=== PATIENT | male | born 1950 | race Caucasian/White ===

== ENCOUNTER 2017-05-27 03:53 | Emergency (ER) | payer MEDICARE ==
[~2017-05-27] VITALS: Ht 172.7 cm; Wt 65.8 kg
--- NOTE | 2017-05-27 04:03 | NUR ---
66 Y/O MALE PLACED IN BED 2 C/O LACERATION TO LEFT FOREARM SECONDARY TO A TRIP AND FALL.
--- NOTE | 2017-05-27 04:06 | NUR ---
PT HAS A HX OF TN AND IS ON BLOOD THINNERS.
[2017-05-27] MEDS ORDERED: LIDOCAINE 1%-EPI 1:100,000 20 ML VIAL ONE (04:31)
--- NOTE | 2017-05-27 04:33 | NUR ---
LACERATION IRRIGATED AND CLEANED. WAITING FOR DO TO CLOSE THE LACERATION
--- NOTE | 2017-05-27 05:02 | NUR ---
LACERATION SUTURED BY DO. EMT DRESSED THE WOUND. PT READY TO BE DISCHARGED HOME.
--- NOTE | 2017-05-27 05:09 | NUR ---
ACI GIVEN TO PT. PT DISCHARGED HOMETO FOLLOW UP WITH PMD.
[2017-05-27 05:13] VITALS: BP 138/82
== END 2017-05-27 05:15 | disposition home or self-care (01) ==
LOC: ER 03:55
DX: S51.812A Laceration without foreign body of left forearm, initial encounter (principal); E11.9 Type 2 diabetes mellitus without complications; F32.9 Major depressive disorder, single episode, unspecified; I10 Essential (primary) hypertension; I25.2 Old myocardial infarction; I25.10 Atherosclerotic heart disease of native coronary artery without angina pectoris; Z95.5 Presence of coronary angioplasty implant and graft; W01.0XXA Fall on same level from slipping, tripping and stumbling without subsequent striking against object, initial encounter; Y93.89 Activity, other specified; Y92.89 Other specified places as the place of occurrence of the external cause; Y99.8 Other external cause status
CPT/HCPCS: 12001; 99283; A4606; A6402; J3490; Z7610

== ENCOUNTER 2021-11-12 05:14 | Inpatient (IN) | payer MEDICARE ==
[~2021-11-12] VITALS: Ht 172.7 cm; Wt 53.5 kg
--- NOTE | 2021-11-12 05:21 | NUR ---
TO ER BED 4. [id number] FROM HOME C/O LEFT HIP PAIN S/P TRIP AND FALL . BREATHING IS EVEN AND NON LABORE. CONNECTED TO MONITOR
--- NOTE | 2021-11-12 06:08 | NUR ---
IV LINE ESTABLISHED, RAC20G. BLOOD COLLECTED AND SENT TO LAB
[2021-11-12 06:14] LABS: BASOPHILS % (AUTO) 0.4 % (0.0-2.0); EOSINOPHILS % (AUTO) 1.3 % (0.0-6.0); HEMATOCRIT 36 % (39-51); HEMOGLOBIN 12.3 g/dL (13.5-17.5); LYMPHOCYTES # (AUTO) 1.7 K/uL (0.8-4.8); LYMPHOCYTES % (AUTO) 15.2 % (20.0-44.0); MEAN CORPUSCULAR HGB CONC 34 g/dl (31.0-36.0); MEAN CORPUSCULAR VOLUME 94 fL (80-96); MONOCYTES % (AUTO) 8.7 % (2.0-12.0); NEUTROPHILS # (AUTO) 8.3 K/uL (1.8-8.9); NEUTROPHILS % (AUTO) 74.4 % (43.0-81.0); PLATELET COUNT (AUTO) 114 K/uL (150-450); RED BLOOD CELL COUNT(AUTO) 3.81 MIL/uL (4.5-6.0); WHITE BLOOD COUNT (AUTO) 11.2 K/uL (4.3-11.0)
--- NOTE | 2021-11-12 06:36 | NUR ---
COVID SWAB COLLECTED AND SENT TO LAB
[2021-11-12 06:47] LABS: CARBON DIOXIDE 27 mmol/L (21-32); CHLORIDE 101 mmol/L (98-107); CREATININE 1.7 mg/dL (0.6-1.3); GLUCOSE 185 mg/dL (74-106); POTASSIUM 4.6 mmol/L (3.5-5.1); SODIUM SERUM 135 mmol/L (136-145); UREA NITROGEN, BLOOD 23 mg/dL (7-18)
[2021-11-12 06:57] LABS: CREATINE KINASE, TOTAL 36 U/L (39-308)
[2021-11-12] MEDS ORDERED: ATOR40TA PO (08:21)
[2021-11-12] MEDS ORDERED: ERGO500093 PO (08:21)
[2021-11-12] MEDS ORDERED: LISI20TA30 PO (08:21)
[2021-11-12] MEDS ORDERED: MONT10TA22 PO (08:21)
[2021-11-12] MEDS ORDERED: GLIM1TAB18 PO (08:21)
[2021-11-12] MEDS ORDERED: VENL150C58 PO (08:21)
[2021-11-12] MEDS ORDERED: CARV25TA2 PO (08:21)
[2021-11-12] MEDS ORDERED: METF-440 PO (08:21)
[2021-11-12] MEDS ORDERED: ASPI-1169 PO (08:21)
[2021-11-12] MEDS ORDERED: GABA600T12 PO (08:21)
--- NOTE | 2021-11-12 11:13 | NUR ---
[facility] CALLED AUTO CLUTCH REBUILDER PAGED.
[2021-11-12] MEDS ORDERED: MORPHINE SULFATE INJ 2 MG/ML DISP.SYRIN IV PRN (11:30)
[2021-11-12] MEDS ORDERED: ACETAMINOPHEN 325 MG TABLET PO PRN (11:30)
[2021-11-12] MEDS ORDERED: ONDANSETRON HCL/PF 4 MG/2 ML VIAL IVP PRN (11:30)
[2021-11-12] MEDS ORDERED: hydrALAZINE HCL IV 20 MG VIAL IV PRN (11:30)
[2021-11-12] MEDS: ENOXAPARIN SODIUM 40 MG/0.4 ML DISP.SYRIN SQ SCH (12:00)
[2021-11-12] MEDS ORDERED: DEXTROSE 50%-WATER 50 ML DISP.SYRIN IV PRN (12:00)
--- NOTE | 2021-11-12 12:07 | NUR ---
HELD LOVENOX [address] LINK.
--- NOTE | 2021-11-12 12:11 | NUR ---
MRSA SWAB OBTAINED AND SENT TO LAB
[2021-11-12] MEDS: BLOOD SUGAR DIAGNOSTIC 1 EACH STRIP IN SCH ×3 (12:12→21:42)
[2021-11-12] MEDS: INSULIN REGULAR, HUMAN 100 UNIT/ML 3 ML VIAL SQ PRN ×3 (12:13→21:44)
--- NOTE | 2021-11-12 12:13 | NUR ---
BLOOD SUGAR 138. NO INSULIN COVERAGE GIVEN DUE TO PATIENT TO BE KEPT NPO UNTIL MRI RESULT IS KNOWN (PER DR LINK).
--- NOTE | 2021-11-12 12:48 | NUR ---
311-1. NURSE FOR REPORT IS EHSAN
--- NOTE | 2021-11-12 12:55 | NUR ---
x-ray tech at the bedside
--- NOTE | 2021-11-12 13:05 | NUR ---
REPORT GIVEN TO NURSE FRANKS FOR DARLINE
--- NOTE | 2021-11-12 13:15 | NUR ---
THE PATIENT IS TAKEN TO ROOM 311-1 IN STABLE CONDITION AND PER POLICY.
[2021-11-12 13:20] VITALS: BP 123/58
--- NOTE | 2021-11-12 13:20 | NUR ---
MS SPECIAL OFFICER [employer] NOTES RECEIVED PATIENT FROM ER ENDORSED BY KLEBER OWENS [facility]IA [facility]. PATIENT IS AWAKE AND A/O X4. ON ROOM AIR TOLERATING WELL. NO SOB NOTED. NOT IN DISTRESS. WITH NO COMPLAINTS OF PAIN OR DISCOMFORT AT THIS TIME. WITH IV ACCESS AT THE RIGHT AC G20 SALINE LOCKED, PATENT AND INTACT. SKIN ASSESSMENT DONE WITH INTACT SKIN. SAFETY MEASURES IN PLACED. CALL LIGHT WITHIN REACH. BED ON LOWEST LOCKED POSITION, SIDE RAILS UP X2. WILL CONTINUE TO MONITOR.
[2021-11-12 16:00] VITALS: BP 123/58
[2021-11-12] MEDS: DOCUSATE SODIUM 100 MG CAPSULE PO SCH ×2 (17:00→17:36)
[2021-11-12] MEDS: GABAPENTIN 300 MG CAPSULE PO SCH ×2 (17:00→17:37)
[2021-11-12] MEDS: VENLAFAXINE XR 150 MG CAP.SR.24H PO SCH ×2 (17:00→17:36)
[2021-11-12] MEDS: CARVEDILOL 12.5 MG TABLET PO SCH ×2 (17:00→17:39)
--- NOTE | 2021-11-12 17:45 | NUR ---
RN NOTE PATIENT HAS MEDICATIONS AT THE BEDSIDE AND REFUSING TO SUBMIT MEDS TO THE PHARMACY. REFUSED TO TAKE MEDS WE TOOK FROM THE [facility] AND PREFERS TO TAKE HIS OWN MEDICATIONS.
[2021-11-12] MEDS: METFORMIN 500 MG TABLET PO SCH (18:00)
--- NOTE | 2021-11-12 18:22 | NUR ---
MS RN CLOSING NOTES PATIENT IS AWAKE AND A/O X4. ON ROOM AIR TOLERATING WELL. NO SOB NOTED. NOT IN DISTRESS. WITH NO COMPLAINTS OF PAIN OR DISCOMFORT AT THIS TIME. WITH IV ACCESS AT THE RIGHT AC G20 SALINE LOCKED, PATENT AND INTACT. DUE MEDS GIVEN. SAFETY MEASURES IN PLACED. CALL LIGHT WITHIN REACH. BED ON LOWEST LOCKED POSITION, SIDE RAILS UP X2. WILL ENDORSE TO NEXT SHIFT FOR DARLINE.
--- NOTE | 2021-11-12 19:05 | NUR ---
RN opening notes Pt is sitting in bed comfortably watching TV accompanied by Pt's . Pt is alert and orientedX4. On room air. No SOB. No S/S of distress noted.IV site at RAC# 20 is clean, intact, flushes well and SL. safety precautions is maintained. Bed at low position, brakes locked, side rails upX2, hob elevated, bed alarm is on and call light is within reach. Will continue to monitor.
[2021-11-12 20:00] VITALS: BP 131/68
--- NOTE | 2021-11-12 20:22 | NUR ---
RN notes Pt is requesting a sleeping pill. Informed and notified Dr. Hernandez. ordered restoril 15 mg/po/hs/prn. Ordered carry out.
--- NOTE | 2021-11-12 21:44 | NUR ---
RN notes Pt's blood sugar HS is 176. Pt refuses coverage. Pt states " I don't want insulin. I've never taken insulin." Explained risks and benefits. Pt keep refusing.
[2021-11-12] MEDS: TEMAZEPAM 15 MG CAPSULE PO PRN (21:48)
--- NOTE | 2021-11-12 21:51 | NUR ---
Rn notes Pt is having insomnia and requesting a sleeping pill. administered restoril 15 mg/1 tab/po as ordered for sleeping. safety precautions is maintained. will continue to monitor.
--- NOTE | 2021-11-13 06:40 | NUR ---
RN closing notes Pt is resting in bed comfortably. Pt is alert and orientedX4. On room air. No SOB. No S/S of distress noted. VS is stable. IV site at RAC# 20 is clean, intact, flushes well and SL. Kept Pt clean, dry and comfortable. safety precautions is maintained. Bed at low position, brakes locked, side rails upX2, hob elevated, bed alarm is on and call light is within reach. Will endorse to am nurse for DARLINE.
[2021-11-13 06:53] LABS: BASOPHILS # (AUTO) 0.1 K/uL (0.0-0.2); BASOPHILS % (AUTO) 0.7 % (0.0-2.0); HEMATOCRIT 37 % (39-51); HEMOGLOBIN 12.9 g/dL (13.5-17.5); LYMPHOCYTES # (AUTO) 1.8 K/uL (0.8-4.8); LYMPHOCYTES % (AUTO) 20.7 % (20.0-44.0); MEAN CORPUSCULAR HGB CONC 35 g/dl (31.0-36.0); MEAN CORPUSCULAR VOLUME 93 fL (80-96); MONOCYTES # (AUTO) 0.8 K/uL (0.1-1.30); MONOCYTES % (AUTO) 9.5 % (2.0-12.0); NEUTROPHILS # (AUTO) 5.8 K/uL (1.8-8.9); NEUTROPHILS % (AUTO) 68.1 % (43.0-81.0); PLATELET COUNT (AUTO) 102 K/uL (150-450); RED BLOOD CELL COUNT(AUTO) 3.97 MIL/uL (4.5-6.0); WHITE BLOOD COUNT (AUTO) 8.5 K/uL (4.3-11.0)
[2021-11-13] MEDS: BLOOD SUGAR DIAGNOSTIC 1 EACH STRIP IN SCH ×4 (07:16→22:47)
[2021-11-13] MEDS: INSULIN REGULAR, HUMAN 100 UNIT/ML 3 ML VIAL SQ PRN (07:17)
--- NOTE | 2021-11-13 07:17 | NUR ---
RN notes Pt blood sugar in am is 159. Pt refused coverage. Explained risks and benefits. Pt keep refusing. Am nurse is aware and informed. Will continue to monitor.
[2021-11-13 07:24] LABS: ALBUMIN 3.3 g/dL (3.4-5.0); BILIRUBIN,TOTAL 0.7 mg/dL (0.2-1.0); CALCIUM, SERUM 8.9 mg/dL (8.5-10.1); CREATININE 1.1 mg/dL (0.6-1.3); PHOSPHORUS 3.1 mg/dL (2.5-4.9); POTASSIUM 4.6 mmol/L (3.5-5.1); TOTAL PROTEIN, SERUM 6.5 g/dL (6.4-8.2)
--- NOTE | 2021-11-13 07:34 | NUR ---
MS RN NOTES RECEIVED PATIENT IN BED AWAKE. PATIENT IS ALERT AND ORIENTED TIMES 4. NO PAIN NOTED. NO DISTRESS NOTED. NO SOB NOTED. ON ROOM AIR AND TOLERATING WELL. ABLE TO MAKE NEEDS KNOWN. IV ACCESS ON THE RAC # 20 INTACT. ALL SAFETY MEASURES IN PLACE. BED LOCKED IN THE LOWEST POSITION. CALL LIGHT AND TABLE IN EASY REACH. SIDE RAILS UP TIMES 2. FALL RISK. BED ALARM ON. WILL CONTINUE TO MONITOR CLOSELY.
[2021-11-13 08:00] VITALS: BP 113/61
[2021-11-13] MEDS: METFORMIN 500 MG TABLET PO SCH ×2 (08:00→18:18)
--- NOTE | 2021-11-13 08:11 | NUR ---
RN NOTES PATIENT REFUSED SCD FOR DVT PROPHYLAXIS. EXPLAINED THE BENEFITS AND USAGE AND NECESSITY OF THE MACHINE, BUT STILL REFUSING STRONGLY.
[2021-11-13] MEDS: ASPIRIN 81 MG TAB.CHEW PO SCH (09:00)
[2021-11-13] MEDS: POLYETHYLENE GLYCOL 3350 17 GM POWD.PACK PO SCH (09:00)
[2021-11-13] MEDS: LISINOPRIL (20MG) 20 MG TABLET PO SCH (09:00)
[2021-11-13] MEDS: VENLAFAXINE XR 150 MG CAP.SR.24H PO SCH ×2 (09:00→16:28)
[2021-11-13] MEDS: CARVEDILOL 12.5 MG TABLET PO SCH ×2 (09:00→16:31)
[2021-11-13] MEDS: DOCUSATE SODIUM 100 MG CAPSULE PO SCH ×2 (09:00→17:00)
[2021-11-13] MEDS: ATORVASTATIN 40 MG TABLET PO SCH (09:00)
[2021-11-13] MEDS: GABAPENTIN 300 MG CAPSULE PO SCH ×2 (09:00→16:30)
[2021-11-13] MEDS: MONTELUKAST SODIUM (10MG) 10 MG TABLET PO SCH (09:00)
--- NOTE | 2021-11-13 09:08 | NUR ---
RN NOTES PATIENT REFUSED ALL 0800 AND 0900 MEDICATIONS. EXPLAINED THE BENEFITS AND USE OF THE MEDICATIONS. PATIENT STILL REFUSING STRONGLY.
[2021-11-13] MEDS: ENOXAPARIN SODIUM 40 MG/0.4 ML DISP.SYRIN SQ SCH (12:00)
--- NOTE | 2021-11-13 12:10 | NUR ---
RN NOTES PATIENT REFUSED 1200 PM LOVENOX. EXPLAINED THE BENEFITS , USAGE AND NECESSITY OF THE MEDICATION. BUT PATIENT REFUSED STRONGLY.
[2021-11-13 16:00] VITALS: BP 143/76
--- NOTE | 2021-11-13 18:50 | NUR ---
MS RN CLOSING NOTES PATIENT IN BED AWAKE. PATIENT IS ALERT AND ORIENTED TIMES 4. NO PAIN NOTED. NO DISTRESS NOTED. NO SOB NOTED. ON ROOM AIR AND TOLERATING WELL. ABLE TO MAKE NEEDS KNOWN. IV ACCESS ON THE RAC # 20 INTACT. 1700 AND 1800 MEDS GIVEN ORDERED. EXCEPT DSS PATIENT REFUSED. ALL SAFETY MEASURES IN PLACE. BED LOCKED IN THE LOWEST POSITION. CALL LIGHT AND TABLE IN EASY REACH. SIDE RAILS UP TIMES 2. FALL RISK. BED ALARM ON. WILL ENDORSE FOR DARLINE.
[2021-11-13 20:00] VITALS: BP 99/59
--- NOTE | 2021-11-13 20:15 | NUR ---
MS/TELE/RN ON INITIAL SHIFT ROUND, PATIENT WAS IN BED AWAKE, ALERT, ORIENTED, NO C/O PAIN NO DISTRESS NOTED, FALL PRECAUTIONS PER PROTOCOL, CALL LIGHT IN REACH, NEEDS ATTENDED WILL MONITOR.
--- NOTE | 2021-11-13 22:44 | NUR ---
MS/TELE/RN ACCU CHECK BLOOD SUGAR 230, REFUSED INSULIN, EDUCATED ON IMPORTANCE OF INSULIN, VERBALISED UNDERSTANDING BUT STILL REFUSED INSULIN, STATING "IT WILL GO DOWN TOMORROW."
[2021-11-13] MEDS: TEMAZEPAM 15 MG CAPSULE PO PRN (22:47)
--- NOTE | 2021-11-13 23:55 | NUR ---
MS/TELE/RN PATIENT IS SLEEPING AT THIS TIME, NO SIGNS OF DISTRESS NOTED, CALL LIGHT IN REACH, WILL CONTINUE TO MONITOR.
--- NOTE | 2021-11-14 06:22 | NUR ---
MS/TELE/RN' PATIENT IS STILL SLEEPING AT THIS TIME, NO SIGNS OF DISTRESS NOTED, ALL NEEDS ATTENDED AT THIS TIME, WILL CONTINUE TO MONITOR.
--- NOTE | 2021-11-14 07:20 | NUR ---
MS RN OPENING NOTES PATIENT IN BED AWAKE. PATIENT IS A/O X4. NO PAIN EXPRESSED AT THIS TIME. ON RA WITH BREATHING EVEN AND UNLABORED. R AC G#20 INTACT AND PATENT. WENT OVER PLAN OF THE DAY WITH PATIENT AND PATIENT VERBALIZED UNDERSTANDING. SAFETY PRECAUTIONS IN PLACE. WILL CONTINUE TO MONITOR
[2021-11-14 08:00] VITALS: BP 103/73
[2021-11-14] MEDS: MONTELUKAST SODIUM (10MG) 10 MG TABLET PO SCH (08:32)
[2021-11-14] MEDS: ATORVASTATIN 40 MG TABLET PO SCH (08:32)
[2021-11-14] MEDS: BLOOD SUGAR DIAGNOSTIC 1 EACH STRIP IN SCH ×2 (08:32→12:00)
[2021-11-14] MEDS: DOCUSATE SODIUM 100 MG CAPSULE PO SCH (08:32)
[2021-11-14] MEDS: CARVEDILOL 12.5 MG TABLET PO SCH (08:32)
[2021-11-14 08:33] VITALS: BP 103/73
[2021-11-14] MEDS: LISINOPRIL (20MG) 20 MG TABLET PO SCH (08:33)
[2021-11-14] MEDS: GABAPENTIN 300 MG CAPSULE PO SCH (08:33)
[2021-11-14] MEDS: METFORMIN 500 MG TABLET PO SCH (08:33)
[2021-11-14] MEDS: ASPIRIN 81 MG TAB.CHEW PO SCH (08:33)
[2021-11-14] MEDS: POLYETHYLENE GLYCOL 3350 17 GM POWD.PACK PO SCH (08:33)
[2021-11-14] MEDS: VENLAFAXINE XR 150 MG CAP.SR.24H PO SCH (08:33)
--- NOTE | 2021-11-14 10:05 | NUR ---
WOUND CARE CONSULT; PT PRESENTS WITH SOME ABRASIONS TO LEFT ARM, PRESENT ON ADMISSION. RECOMMENDATIONS MADE FOR WOUND CARE AND SKIN PROTECTION. DISCUSSED WITH NURSING STAFF. PT REFUSED TO TURN FOR FULL SKIN ASSESSMENT. MD IN AGREEMENT WITH PLAN OF CARE.
[2021-11-14] MEDS ORDERED: HYDR-4303 PO (10:43)
[2021-11-14] MEDS: ENOXAPARIN SODIUM 40 MG/0.4 ML DISP.SYRIN SQ SCH (12:00)
--- NOTE | 2021-11-14 12:05 | NUR ---
RN NOTES PATIENT IS MEDICALLY CLEARED FOR DISCHARGE. CURRENTLY REFUSING TO HAVE ANYMORE MEDICATIONS. WILL CONTINUE TO MONITOR UNTIL DISCHARGED SAFELY
--- NOTE | 2021-11-14 12:45 | NUR ---
RN NOTES PATIENT MEDICALLY STABLE FOR DISCHARGE. VSS. DISCHARGE INSTRUCTIONS PROVIDED AND PATIENT VERBALIZED UNDERSTANDING. ALL BELONGINGS ACCOUNTED FOR AND DOCUMENTS SIGNED. SKIN CLEAR AND INTACT OTHER THAN LEFT ARM ABRASION NOTED AND PHOTOGRAPHED. IV ACCESS REMOVED AND ID BAND REMOVED. PATIENT LEFT HOSPITAL ACCOMPANIED BY GIRLFRIEND IN PRIVATE CAR.
[2021-12-12] MEDS ORDERED: ERGOCALCIFEROL (VITAMIN D 2) 50,000 UNIT CAPSULE PO SCH (09:00)
== END 2021-11-14 12:50 | disposition home health service (06) | DRG 535 ==
LOC: ER 05:16 → TRANSITION 11:44 → MED 12:52
PROVIDERS: ADMIT Internal Medicine; ATTEND Internal Medicine
DX: S72.115A Nondisplaced fracture of greater trochanter of left femur, initial encounter for closed fracture (principal); N17.0 Acute kidney failure with tubular necrosis; E87.1 Hypo-osmolality and hyponatremia; E11.42 Type 2 diabetes mellitus with diabetic polyneuropathy; W01.0XXA Fall on same level from slipping, tripping and stumbling without subsequent striking against object, initial encounter; E11.21 Type 2 diabetes mellitus with diabetic nephropathy; D63.8 Anemia in other chronic diseases classified elsewhere; E78.5 Hyperlipidemia, unspecified; E88.09 Other disorders of plasma-protein metabolism, not elsewhere classified; I10 Essential (primary) hypertension; I25.10 Atherosclerotic heart disease of native coronary artery without angina pectoris; Z66 Do not resuscitate; Z20.822 Contact with and (suspected) exposure to COVID-19; E87.70 Fluid overload, unspecified; I25.2 Old myocardial infarction; Y93.9 Activity, unspecified; Y92.009 Unspecified place in unspecified non-institutional (private) residence as the place of occurrence of the external cause; Z79.84 Long term (current) use of oral hypoglycemic drugs
CPT/HCPCS: 36415; 71100-TC; 73090-TC; 73502; 73700-TC; 73721-TC; 80048-TC; 80053-TC; 82550-TC; 82962-TC; 83605-TC; 83735-TC; 84100-TC; 85025-TC; 85610-TC; 87081-TC; 97116-TC; 97530-TC; A6253; C9803; G0378

== ENCOUNTER 2021-11-28 14:10 | Emergency (ER) | payer MEDICARE ==
[~2021-11-28] VITALS: Ht 167.6 cm; Wt 52.2 kg
[~2021-11-28 14:10] MED LIST: ASPI-1169 PO; ATOR40TA PO; CARV25TA2 PO; ERGO500093 PO; GABA600T12 PO; GLIM1TAB18 PO; HYDR-4303 PO; LISI20TA30 PO; METF-440 PO; MONT10TA22 PO; VENL150C58 PO
--- NOTE | 2021-11-28 14:22 | NUR ---
To ER bed 3, "Been having swelling on ankles last couple days spoke to my MD was told to have it checked", aaox3, ambulatory, breathing even and non labored, connected to monitor, awaiting md marcus
--- NOTE | 2021-11-28 16:20 | NUR ---
PER RADIOLOGY, PATIENT HAS POSITIVE DVT ON DISTAL RIGHT FEMORAL VEIN, DR DECKER AWARE
[2021-11-28 16:51] LABS: BASOPHILS # (AUTO) 0.1 K/uL (0.0-0.2); BASOPHILS % (AUTO) 1.2 % (0.0-2.0); EOSINOPHILS % (AUTO) 5.1 % (0.0-6.0); HEMATOCRIT 34 % (39-51); HEMOGLOBIN 11.8 g/dL (13.5-17.5); LYMPHOCYTES # (AUTO) 1.8 K/uL (0.8-4.8); LYMPHOCYTES % (AUTO) 28.4 % (20.0-44.0); MEAN CORPUSCULAR HGB CONC 35 g/dl (31.0-36.0); MEAN CORPUSCULAR VOLUME 93 fL (80-96); MONOCYTES # (AUTO) 0.4 K/uL (0.1-1.30); MONOCYTES % (AUTO) 6.9 % (2.0-12.0); NEUTROPHILS # (AUTO) 3.7 K/uL (1.8-8.9); NEUTROPHILS % (AUTO) 58.4 % (43.0-81.0); PLATELET COUNT (AUTO) 167 K/uL (150-450); RED BLOOD CELL COUNT(AUTO) 3.66 MIL/uL (4.5-6.0); WHITE BLOOD COUNT (AUTO) 6.4 K/uL (4.3-11.0)
[2021-11-28 17:05] LABS: CALCIUM, SERUM 9.1 mg/dL (8.5-10.1); CARBON DIOXIDE 31 mmol/L (21-32); CHLORIDE 106 mmol/L (98-107); GLUCOSE 80 mg/dL (74-106); POTASSIUM 4.5 mmol/L (3.5-5.1); SODIUM SERUM 139 mmol/L (136-145); UREA NITROGEN, BLOOD 21 mg/dL (7-18)
[2021-11-28 17:11] LABS: ALANINE AMINOTRANSFERASE 20 U/L (12-78); ALBUMIN 3.2 g/dL (3.4-5.0); ALKALINE PHOSPHATASE 93 U/L (46-116); ASPARTATE AMINOTRANSFERASE 16 U/L (15-37); BILIRUBIN,TOTAL 0.3 mg/dL (0.2-1.0); TOTAL PROTEIN, SERUM 6.2 g/dL (6.4-8.2)
[2021-11-28] MEDS ORDERED: RIVA10TA PO (17:37)
--- NOTE | 2021-11-28 17:40 | NUR ---
DR DECKER BEDSIDE TALKING TO THE PATIENT
--- NOTE | 2021-11-28 17:44 | NUR ---
Patient discharged to home in stable condition. Written and verbal after care instructions given. Patient verbalizes understanding of instruction.
[2021-11-28 17:45] VITALS: BP 134/80
== END 2021-11-28 17:46 | disposition home or self-care (01) ==
LOC: ER 16:19
DX: I82.403 Acute embolism and thrombosis of unspecified deep veins of lower extremity, bilateral (principal); I10 Essential (primary) hypertension; E11.9 Type 2 diabetes mellitus without complications; Z90.89 Acquired absence of other organs; Z60.2 Problems related to living alone; Z79.899 Other long term (current) drug therapy
CPT/HCPCS: 36415; 80053-TC; 85025-TC; 85730-TC; 93970-TC

== ENCOUNTER 2023-05-26 10:29 | Emergency (ER) | payer MEDICARE ==
[~2023-05-26] VITALS: Ht 172.7 cm; Wt 59.0 kg
[~2023-05-26 10:29] MED LIST changes: -HYDR-4303 PO; +RIVA10TA PO
[2023-05-26 10:41] VITALS: BP 153/90; TEMP 98.2; O2SAT 100
[2023-05-26] MEDS: BACI/NEOM/POLY B OINT PKT 1 UDPKT PACKET TP ONE (11:03)
[2023-05-26] MEDS ORDERED: BENZOIN COMPOUND TINCT 60 ML BOTTLE ONE (11:27)
== END 2023-05-26 12:01 | disposition home or self-care (01) ==
LOC: ER 10:41
DX: S61.211A Laceration without foreign body of left index finger without damage to nail, initial encounter (principal); S40.022A Contusion of left upper arm, initial encounter; S40.021A Contusion of right upper arm, initial encounter; S09.90XA Unspecified injury of head, initial encounter; I10 Essential (primary) hypertension; E78.5 Hyperlipidemia, unspecified; I25.2 Old myocardial infarction; E11.9 Type 2 diabetes mellitus without complications; Z90.89 Acquired absence of other organs; Z60.2 Problems related to living alone; Z79.84 Long term (current) use of oral hypoglycemic drugs; Z79.899 Other long term (current) drug therapy; W01.0XXA Fall on same level from slipping, tripping and stumbling without subsequent striking against object, initial encounter; Y93.89 Activity, other specified; Y92.89 Other specified places as the place of occurrence of the external cause; Y99.8 Other external cause status
CPT/HCPCS: 70450-TC

== ENCOUNTER 2024-01-05 20:11 | Inpatient (IN) | payer MEDICARE ==
[~2024-01-05] VITALS: Ht 172.7 cm; Wt 57.4 kg
[2024-01-05] MEDS: IV NS 0.9% 1,000 ML BAG IV ONE ×2 (20:41→21:40)
[2024-01-05] MEDS ORDERED: INSULIN REGULAR, HUMAN 100 UNIT/ML 10 ML VIAL ONE (20:43)
[2024-01-05 20:46] LABS: BASOPHILS % (AUTO) 0.3 % (0.0-2.0); EOSINOPHILS % (AUTO) 0.6 % (0.0-6.0); HEMATOCRIT 43 % (39-51); HEMOGLOBIN 14.2 g/dL (13.5-17.5); LYMPHOCYTES # (AUTO) 0.7 K/uL (0.8-4.8); LYMPHOCYTES % (AUTO) 17.7 % (20.0-44.0); MEAN CORPUSCULAR HEMOGLOBIN 33 PG (26.0-33.0); MEAN CORPUSCULAR HGB CONC 33 g/dl (31.0-36.0); MEAN CORPUSCULAR VOLUME 99 fL (80-96); MONOCYTES # (AUTO) 0.7 K/uL (0.1-1.30); MONOCYTES % (AUTO) 19.2 % (2.0-12.0); NEUTROPHILS # (AUTO) 2.4 K/uL (1.8-8.9); NEUTROPHILS % (AUTO) 62.2 % (43.0-81.0); PLATELET COUNT (AUTO) 134 K/uL (150-450); RED BLOOD CELL COUNT(AUTO) 4.32 MIL/uL (4.5-6.0); RED CELL DISTRIBUTION WIDTH 13.2 % (11.5-15.0); WHITE BLOOD COUNT (AUTO) 3.8 K/uL (4.3-11.0)
[2024-01-05 21:01] LABS: CALCIUM, SERUM 9.7 mg/dL (8.5-10.1); CARBON DIOXIDE 21 mmol/L (21-32); CHLORIDE 93 mmol/L (98-107); CREATININE 1.1 mg/dL (0.6-1.3); GLUCOSE 353 mg/dL (74-106); POTASSIUM 4.1 mmol/L (3.5-5.1); SODIUM SERUM 132 mmol/L (136-145); UREA NITROGEN, BLOOD 35 mg/dL (7-18)
[2024-01-05] MEDS: INSULIN REGULAR, HUMAN 100 UNIT/ML 10 ML VIAL IV ONE (21:05)
[2024-01-05] MEDS ORDERED: INSULIN REGULAR, HUMAN 100 UNIT/ML 10 ML VIAL IV ONE (22:30)
[2024-01-05] MEDS ORDERED: Z GUARD REMEDY 4 OZ OINT TP PRN (22:30)
[2024-01-05] MEDS ORDERED: ONDANSETRON HCL/PF 4 MG/2 ML VIAL IVP PRN (22:30)
[2024-01-05 22:46] VITALS: O2SAT 98
[2024-01-05] MEDS ORDERED: INSULIN REGULAR, HUMAN 100 UNIT/ML 10 ML VIAL SQ SCH (23:00)
[2024-01-06] MEDS: BLOOD SUGAR DIAGNOSTIC 1 EACH STRIP IN SCH ×2 (00:03→01:04)
[2024-01-06] MEDS ORDERED: INSULIN REGULAR, HUMAN 100 UNIT/ML 3 ML VIAL SQ PRN (00:30)
[2024-01-06] MEDS ORDERED: *INSULIN REGULAR(HUMULIN R)HUM 100 UNIT/ML VIAL SQ PRN (00:30)
[2024-01-06] MEDS ORDERED: DEXTROSE 50%-WATER 50 ML DISP.SYRIN IV PRN (00:30)
[2024-01-06] MEDS ORDERED: BLOOD SUGAR DIAGNOSTIC 1 EACH STRIP IN SCH (00:30)
[2024-01-06] MEDS ORDERED: INSULIN GLARGINE, 100 UNIT/ML CARTRIDGE SQ ONE (00:34)
[2024-01-06] MEDS: IV NS 0.9% 1,000 ML IV PRN (00:40)
[2024-01-06] MEDS: INSULIN GLARGINE, 100 UNIT/ML CARTRIDGE SQ SCH (00:42)
[2024-01-06] MEDS: *INSULIN REGULAR(HUMULIN R)HUM 100 UNIT/ML VIAL SQ SCH (01:00)
[2024-01-06] MEDS: MAG HYDROX/AL HYDROX/SIMETH 30 ML UDC PO PRN (01:26)
[2024-01-06 02:00] LABS: CALCIUM, SERUM 9.4 mg/dL (8.5-10.1); CARBON DIOXIDE 16 mmol/L (21-32); CHLORIDE 101 mmol/L (98-107); GLUCOSE 237 mg/dL (74-106); PHOSPHORUS 2.9 mg/dL (2.5-4.9); SODIUM SERUM 137 mmol/L (136-145); UREA NITROGEN, BLOOD 31 mg/dL (7-18)
[2024-01-06 05:00] VITALS: BP 117/84; TEMP 98.1; O2SAT 98
[2024-01-06 06:17] LABS: BASOPHILS % (AUTO) 0.1 % (0.0-2.0); EOSINOPHILS % (AUTO) 0.4 % (0.0-6.0); HEMATOCRIT 41 % (39-51); HEMOGLOBIN 13.8 g/dL (13.5-17.5); LYMPHOCYTES # (AUTO) 0.4 K/uL (0.8-4.8); LYMPHOCYTES % (AUTO) 17.6 % (20.0-44.0); MEAN CORPUSCULAR HEMOGLOBIN 33 PG (26.0-33.0); MEAN CORPUSCULAR HGB CONC 34 g/dl (31.0-36.0); MEAN CORPUSCULAR VOLUME 98 fL (80-96); MONOCYTES # (AUTO) 0.3 K/uL (0.1-1.30); MONOCYTES % (AUTO) 11.9 % (2.0-12.0); NEUTROPHILS # (AUTO) 1.7 K/uL (1.8-8.9); PLATELET COUNT (AUTO) 109 K/uL (150-450); RED BLOOD CELL COUNT(AUTO) 4.18 MIL/uL (4.5-6.0); RED CELL DISTRIBUTION WIDTH 12.9 % (11.5-15.0); WHITE BLOOD COUNT (AUTO) 2.4 K/uL (4.3-11.0)
[2024-01-06 06:24] LABS: ABG BASE EXCESS -5.2 mmol/L (-2.0-3.0); ABG OXYGEN SATURATION 95.4 % (94.0-98.0); ABG PCO2 26.7 mmHg (35.0-48.0); ABG PH 7.434 (7.350-7.450); ABG PO2 81.7 mmHg (83.0-108.0); ABG TOTAL HEMOGLOBIN 13.2 G/dL (13.5-17.5); COHb 0.3 % (0.5-1.5); MetHb 0.2 % (0.0-1.5); O2Hb 94.9 % (94.0-97.0)
[2024-01-06] MEDS ORDERED: INSULIN REGULAR, HUMAN 100 UNIT/ML 10 ML VIAL SQ SCH (07:30)
[2024-01-06 07:31] LABS: ALANINE AMINOTRANSFERASE 20 U/L (12-78); ALBUMIN 3.3 g/dL (3.4-5.0); ALKALINE PHOSPHATASE 50 U/L (46-116); ASPARTATE AMINOTRANSFERASE 20 U/L (15-37); BILIRUBIN,DIRECT 0.1 mg/dL (0.0-0.2); BILIRUBIN,TOTAL 0.5 mg/dL (0.2-1.0); CARBON DIOXIDE 22 mmol/L (21-32); CHLORIDE 102 mmol/L (98-107); CREATININE 0.9 mg/dL (0.6-1.3); GLUCOSE 164 mg/dL (74-106); MAGNESIUM 2.3 mg/dL (1.8-2.4); PHOSPHORUS 2.6 mg/dL (2.5-4.9); SODIUM SERUM 137 mmol/L (136-145); TOTAL PROTEIN, SERUM 6.5 g/dL (6.4-8.2); UREA NITROGEN, BLOOD 26 mg/dL (7-18)
[2024-01-06] MEDS: PANTOPRAZOLE 40 MG VIAL IV SCH (08:03)
[2024-01-06 08:21] VITALS: BP 123/68; TEMP 99; O2SAT 96
[2024-01-06 15:58] VITALS: BP 114/64; TEMP 97.9; O2SAT 96
== END 2024-01-06 18:10 | disposition home or self-care (01) | DRG 638 ==
LOC: ER 20:17 → TELE 22:56 → MED 01-06 11:28
PROVIDERS: ADMIT Nurse Practitioner Family; ATTEND Nurse Practitioner Family
DX: E11.10 Type 2 diabetes mellitus with ketoacidosis without coma (principal); Z68.1 Body mass index [BMI] 19.9 or less, adult; E78.5 Hyperlipidemia, unspecified; E86.0 Dehydration; I10 Essential (primary) hypertension; I25.10 Atherosclerotic heart disease of native coronary artery without angina pectoris; F41.9 Anxiety disorder, unspecified; I48.91 Unspecified atrial fibrillation; M89.8X9 Other specified disorders of bone, unspecified site; Z79.01 Long term (current) use of anticoagulants; Z79.84 Long term (current) use of oral hypoglycemic drugs; Z79.82 Long term (current) use of aspirin; R63.6 Underweight; R53.1 Weakness; Z95.5 Presence of coronary angioplasty implant and graft; Z20.822 Contact with and (suspected) exposure to COVID-19
CPT/HCPCS: 36415; 36600; 71045-TC; 80048-TC; 80076-TC; 82010-TC; 82803-TC; 82962-TC; 83735-TC; 84100-TC; 84443-TC; 84484-TC; 85025-TC; A4223; G0378; J1815; J2470; J7030

== ENCOUNTER 2024-01-08 23:47 | Inpatient (IN) | payer MEDICARE ==
[~2024-01-08] VITALS: Ht 165.1 cm; Wt 72.6 kg
[2024-01-09] VITALS (24 sets, daily range): BP systolic 31–175; BP diastolic 18–83; TEMP 97.4; O2SAT 64–87
[2024-01-09 00:13] LABS: BASOPHILS % (AUTO) 0.1 % (0.0-2.0); EOSINOPHILS % (AUTO) 0.2 % (0.0-6.0); HEMATOCRIT 41 % (39-51); HEMOGLOBIN 13.4 g/dL (13.5-17.5); LYMPHOCYTES # (AUTO) 0.5 K/uL (0.8-4.8); LYMPHOCYTES % (AUTO) 9.7 % (20.0-44.0); MEAN CORPUSCULAR HEMOGLOBIN 33 PG (26.0-33.0); MEAN CORPUSCULAR HGB CONC 33 g/dl (31.0-36.0); MEAN CORPUSCULAR VOLUME 100 fL (80-96); MONOCYTES # (AUTO) 0.8 K/uL (0.1-1.30); MONOCYTES % (AUTO) 14.4 % (2.0-12.0); NEUTROPHILS % (AUTO) 75.6 % (43.0-81.0); PLATELET COUNT (AUTO) 185 K/uL (150-450); RED BLOOD CELL COUNT(AUTO) 4.12 MIL/uL (4.5-6.0); RED CELL DISTRIBUTION WIDTH 13.3 % (11.5-15.0); WHITE BLOOD COUNT (AUTO) 5.3 K/uL (4.3-11.0)
[2024-01-09 00:34] LABS: ALANINE AMINOTRANSFERASE 21 U/L (12-78); ALBUMIN 3.1 g/dL (3.4-5.0); ALKALINE PHOSPHATASE 63 U/L (46-116); ASPARTATE AMINOTRANSFERASE 26 U/L (15-37); BILIRUBIN,TOTAL 0.8 mg/dL (0.2-1.0); CALCIUM, SERUM 8.9 mg/dL (8.5-10.1); CHLORIDE 98 mmol/L (98-107); CREATININE 1.3 mg/dL (0.6-1.3); GLUCOSE 297 mg/dL (74-106); NT-PRO BNP 4153 pg/mL (0-125); POTASSIUM 4.4 mmol/L (3.5-5.1); SODIUM SERUM 137 mmol/L (136-145); TOTAL PROTEIN, SERUM 6.3 g/dL (6.4-8.2); UREA NITROGEN, BLOOD 36 mg/dL (7-18)
[2024-01-09 00:36] LABS: CARBON DIOXIDE 8 mmol/L (21-32)
[2024-01-09 00:47] LABS: ABG BASE EXCESS -19.7 mmol/L (-2.0-3.0); ABG OXYGEN SATURATION 97.5 % (94.0-98.0); ABG PH 7.236 (7.350-7.450); ABG PO2 126.7 mmHg (83.0-108.0); COHb 0.3 % (0.5-1.5); MetHb 0.2 % (0.0-1.5); SITE, ABG LEFT BRACHIAL
[2024-01-09] MEDS: IV NS 0.9% 1,000 ML IV ONE ×2 (00:58→04:39)
[2024-01-09 01:05] LABS: ACETONE, SERUM LARGE (NEGATIVE)
[2024-01-09 01:07] LABS: LACTIC ACID 2.3 mmol/L (0.4-2.0)
[2024-01-09] MEDS ORDERED: PIPERACI/TAZO 3.375GM/D5W 50ML PB IV ONE (01:33)
[2024-01-09] MEDS ORDERED: INSULIN REGULAR, HUMAN 100 UNIT/ML 10 ML VIAL ONE (01:33)
[2024-01-09] MEDS: PIPERACILLIN /TAZOBACTAM 3.375 G in IV D5W 50 ML IV ONE (01:36)
[2024-01-09] MEDS: IV D5/0.45 NACL 1,000 ML IV ONE (02:04)
[2024-01-09] MEDS: INSULIN REGULAR, HUMAN 100 UNIT in IV NS 0.9% 99 ML IV PRN (02:05)
[2024-01-09 03:13] LABS: BILIRUBIN,DIRECT 0.2 mg/dL (0.0-0.2)
[2024-01-09 03:20] LABS: LACTIC ACID REFLEX 3.8 mmol/L (0.4-1.9)
[2024-01-09] MEDS ORDERED: LORAZEPAM INJ 2 MG/ML VIAL ONE (03:33)
[2024-01-09] MEDS: LORAZEPAM INJ 2 MG/ML VIAL IV ONE (03:36)
[2024-01-09 03:40] LABS: APPEARANCE,URINE CLEAR (CLEAR); BILIRUBIN,URINE 2+ (NEGATIVE); BLOOD, URINE NEGATIVE Ery/uL (NEGATIVE); COLOR,URINE YELLOW (YELLOW); KETONES,URINE 3+ mg/dL (NEGATIVE); LEUKOCYTE ESTERASE ,URINE NEGATIVE (NEGATIVE); NITRITE, URINE NEGATIVE (NEGATIVE); PROTEIN,URINE 1+ mg/dl (NEGATIVE); UGLUCOSE 3+ mg/dL (NEGATIVE); UROBILINOGEN,URINE 0.2 EU/dL (0.2)
[2024-01-09] MEDS ORDERED: diphenhydrAMINE HCL 50 MG/ML VIAL ONE (04:29)
[2024-01-09] MEDS ORDERED: Z GUARD REMEDY 4 OZ OINT TP PRN (04:30)
[2024-01-09] MEDS: diphenhydrAMINE HCL 50 MG/ML VIAL IV ONE (04:30)
[2024-01-09] MEDS ORDERED: ONDANSETRON HCL/PF 4 MG/2 ML VIAL IVP PRN (04:30)
[2024-01-09] MEDS: BLOOD SUGAR DIAGNOSTIC 1 EACH STRIP IN SCH (05:00)
[2024-01-09] MEDS ORDERED: INSULIN REGULAR, HUMAN 100 UNIT/ML 10 ML VIAL IV SCH (05:00)
[2024-01-09] MEDS: SUCCINYLCHOLINE CHLORIDE 20 MG/ML VIAL IV ONE (05:02)
[2024-01-09] MEDS: ETOMIDATE 2 MG/ML VIAL IV ONE (05:02)
[2024-01-09 05:22] LABS: ADD URINE CULTURE NO; BACTERIA,URINE None seen /HPF (None Seen); HYALINE CASTS, URINE Rare /LPF (None Seen); RBC,URINE NONE SEEN /HPF (0-2); SQUAMOUS EPITHELIAL CELL,UR 0-2 /HPF (None Seen); WBC,URINE NONE SEEN /HPF (0-3)
[2024-01-09] MEDS ORDERED: PROPOFOL 100 ML ONE (05:40)
[2024-01-09] MEDS ORDERED: NOREPINEPHRINE 8MG/250ML RTU 250 ML IV ONE (05:43)
[2024-01-09] MEDS: NOREPINEPHRINE 8 MG in IV D5W 242 ML IV PRN ×2 (05:52→07:05)
[2024-01-09] MEDS: PROPOFOL 100 ML IV PRN (06:00)
[2024-01-09] MEDS: SODIUM BICARBONATE SYR 50 MEQ/50 ML DISP.SYRIN IV ONE ×2 (06:12)
[2024-01-09] MEDS ORDERED: SODIUM BICARBONATE SYR 50 MEQ/50 ML DISP.SYRIN ONE ×2 (06:16→06:34)
[2024-01-09 06:26] LABS: PEEP,BG 5 cm H2O; SITE, ABG LEFT BRACHIAL; VT, ABG 400 mL
[2024-01-09 06:28] LABS: ABG OXYGEN SATURATION 96.7 % (94.0-98.0); ABG PCO2 18.6 mmHg (35.0-48.0); ABG PH 7.169 (7.350-7.450); ABG PO2 122.4 mmHg (83.0-108.0); ABG TOTAL HEMOGLOBIN 11.1 G/dL (13.5-17.5); COHb 0.3 % (0.5-1.5); O2Hb 96.4 % (94.0-97.0); SITE, ABG LEFT BRACHIAL
[2024-01-09] MEDS ORDERED: INSULIN REGULAR, HUMAN 100 UNIT in IV NS 0.9% 99 ML IV PRN (06:30)
[2024-01-09] MEDS: PANTOPRAZOLE 80 MG in IV NS 0.9% 100 ML IV ONE (06:35)
[2024-01-09] MEDS: Sodium Bicarbonate 50 MEQ in IV NS 0.9% 1,000 ML IV PRN (06:42)
[2024-01-09] MEDS ORDERED: PANTOPRAZOLE 40 MG VIAL ONE (06:43)
[2024-01-09] MEDS: PANTOPRAZOLE 80 MG in IV NS 0.9% 500 ML IV SCH (06:45)
[2024-01-09 07:08] LABS: EOSINOPHILS % (AUTO) 0.2 % (0.0-6.0); HEMATOCRIT 31 % (39-51); HEMOGLOBIN 10.5 g/dL (13.5-17.5); LYMPHOCYTES # (AUTO) 0.8 K/uL (0.8-4.8); LYMPHOCYTES % (AUTO) 9.6 % (20.0-44.0); MEAN CORPUSCULAR HEMOGLOBIN 33 PG (26.0-33.0); MEAN CORPUSCULAR HGB CONC 33 g/dl (31.0-36.0); MEAN CORPUSCULAR VOLUME 100 fL (80-96); MONOCYTES # (AUTO) 1.6 K/uL (0.1-1.30); MONOCYTES % (AUTO) 19.1 % (2.0-12.0); NEUTROPHILS # (AUTO) 5.8 K/uL (1.8-8.9); NEUTROPHILS % (AUTO) 71.1 % (43.0-81.0); PLATELET COUNT (AUTO) 145 K/uL (150-450); RED BLOOD CELL COUNT(AUTO) 3.14 MIL/uL (4.5-6.0); RED CELL DISTRIBUTION WIDTH 12.8 % (11.5-15.0); WHITE BLOOD COUNT (AUTO) 8.1 K/uL (4.3-11.0)
[2024-01-09 07:17] LABS: ALANINE AMINOTRANSFERASE 23 U/L (12-78); ALBUMIN 2.5 g/dL (3.4-5.0); ALKALINE PHOSPHATASE 59 U/L (46-116); ASPARTATE AMINOTRANSFERASE 24 U/L (15-37); BILIRUBIN,DIRECT 0.1 mg/dL (0.0-0.2); BILIRUBIN,TOTAL 0.6 mg/dL (0.2-1.0); CALCIUM, SERUM 7.4 mg/dL (8.5-10.1); CARBON DIOXIDE 13 mmol/L (21-32); CHLORIDE 106 mmol/L (98-107); CREATININE 1.5 mg/dL (0.6-1.3); GLUCOSE 315 mg/dL (74-106); MAGNESIUM 2.3 mg/dL (1.8-2.4); PHOSPHORUS 5.8 mg/dL (2.5-4.9); POTASSIUM 4.3 mmol/L (3.5-5.1); SODIUM SERUM 140 mmol/L (136-145); UREA NITROGEN, BLOOD 43 mg/dL (7-18)
[2024-01-09 07:32] LABS: INR 1.18 (0.91-1.10); PROTHROMBIN TIME 12.4 SECS (9.2-11.1)
[2024-01-09 07:43] LABS: NT-PRO BNP 5501 pg/mL (0-125)
[2024-01-09 07:50] LABS: BAND % (MANUAL) 2 % (0.0-5.0); LYMPHOCYTES % (MANUAL) 15 % (16-48); MONOCYTES % (MANUAL) 14 % (0-11.0); MYELOCYTES % 4 % (0-0); NEUTROPHILS % (MANUAL) 65 (42-76)
[2024-01-09 07:51] LABS: PLATELET ESTIMATE DECREASED
[2024-01-09] MEDS ORDERED: PANTOPRAZOLE 40 MG VIAL IV SCH (09:00)
[2024-01-09] MEDS ORDERED: PROPOFOL 100 ML IV PRN (09:00)
[2024-01-09] MEDS: IV NS 0.9% 1,000 ML IV PRN (09:59)
[2024-01-09] MEDS: NOREPINEPHRINE 32 MG in IV NS 0.9% 218 ML IV PRN (10:20)
[2024-01-09] MEDS: PIPERACILLIN /TAZOBACTAM 3.375 G in IV D5W 100 ML IV SCH (10:47)
[2024-01-09] MEDS ORDERED: SUCCINYLCHOLINE CHLORIDE 20 MG/ML VIAL IV ONE (10:50)
[2024-01-09 11:12] LABS: CALCIUM, SERUM 7.4 mg/dL (8.5-10.1); CARBON DIOXIDE 21 mmol/L (21-32); CHLORIDE 108 mmol/L (98-107); CREATININE 1.5 mg/dL (0.6-1.3); GLUCOSE 235 mg/dL (74-106); MAGNESIUM 2.1 mg/dL (1.8-2.4); PHOSPHORUS 4.1 mg/dL (2.5-4.9); POTASSIUM 3.5 mmol/L (3.5-5.1); SODIUM SERUM 144 mmol/L (136-145); UREA NITROGEN, BLOOD 46 mg/dL (7-18)
[2024-01-09] MEDS: PHENYLEPHRINE 100 MG in IV NS 0.9% 240 ML IV PRN (11:33)
[2024-01-09] MEDS ORDERED: Sodium Bicarbonate 150 MEQ in IV D5W 1,000 ML IV PRN (12:00)
[2024-01-09] MEDS: Sodium Bicarbonate 150 MEQ in IV D5W 1,000 ML IV SCH (12:25)
[2024-01-09] MEDS ORDERED: VASOPRESSIN INJ 40 UNIT in IV NS 0.9% 38 ML IV PRN (12:30)
[2024-01-09] MEDS ORDERED: CALCIUM CHLORIDE 1,000 MG/10 ML DISP.SYRIN IV ONE (13:05)
[2024-01-10 20:53] LABS: ABG BASE EXCESS -24.5 mmol/L (-2.0-3.0); ABG OXYGEN SATURATION 69.4 % (94.0-98.0); ABG PH 6.916 (7.350-7.450); ABG PO2 49.8 mmHg (83.0-108.0); ABG TOTAL HEMOGLOBIN 11.6 G/dL (13.5-17.5); COHb 0.3 % (0.5-1.5); MetHb 0.3 % (0.0-1.5)
== END 2024-01-09 15:00 | DRG 871 ==
LOC: ER 23:55 → ICU 01-09 06:06
PROVIDERS: ADMIT Nurse Practitioner Family; ATTEND Nurse Practitioner Family
PROC: 5A1935Z Respiratory Ventilation, Less than 24 Consecutive Hours (ICD-10-PCS; principal; 2024-01-09)
PROC: 0BH17EZ Insertion of Endotracheal Airway into Trachea, Via Natural or Artificial Opening (ICD-10-PCS; 2024-01-09)
PROC: 06HY33Z Insertion of Infusion Device into Lower Vein, Percutaneous Approach (ICD-10-PCS; 2024-01-09)
PROC: 5A12012 Performance of Cardiac Output, Single, Manual (ICD-10-PCS; 2024-01-09)
PROC: 0D9670Z Drainage of Stomach with Drainage Device, Via Natural or Artificial Opening (ICD-10-PCS; 2024-01-09)
DX: A41.9 Sepsis, unspecified organism (principal); E11.10 Type 2 diabetes mellitus with ketoacidosis without coma; J18.9 Pneumonia, unspecified organism; J69.0 Pneumonitis due to inhalation of food and vomit; R65.21 Severe sepsis with septic shock; N17.0 Acute kidney failure with tubular necrosis; J96.01 Acute respiratory failure with hypoxia; G93.41 Metabolic encephalopathy; K92.2 Gastrointestinal hemorrhage, unspecified; F41.9 Anxiety disorder, unspecified; E88.09 Other disorders of plasma-protein metabolism, not elsewhere classified; I46.9 Cardiac arrest, cause unspecified; Z91.148 Patient's other noncompliance with medication regimen for other reason; I48.91 Unspecified atrial fibrillation; Z79.82 Long term (current) use of aspirin; Z79.84 Long term (current) use of oral hypoglycemic drugs; Z79.899 Other long term (current) drug therapy; Z95.5 Presence of coronary angioplasty implant and graft; I25.10 Atherosclerotic heart disease of native coronary artery without angina pectoris; E86.0 Dehydration; I10 Essential (primary) hypertension; E78.5 Hyperlipidemia, unspecified; D50.9 Iron deficiency anemia, unspecified; Z79.01 Long term (current) use of anticoagulants
CPT/HCPCS: 31720; 36415; 36600; 70450-TC; 71045-TC; 80048-TC; 80053-TC; 80076-TC; 81001; 82010-TC; 82140-TC; 82248-TC; 82803-TC; 82962-TC; 83605-TC; 83735-TC; 83880; 84100-TC; 84443-TC; 84484-TC; 85025-TC; 85610-TC; 87040-TC; 87081-TC; 93307-TC; 94003-TC; 94760-TC; 94762-TC; 94799-TC; A4223; G0378; J0171; J0330; J1200; J1815; J2060; J2470; J2543; J3490; J7030; J7040; J7050; J7060; J7070